=== PATIENT | male | born 1950 | race Caucasian/White ===

== ENCOUNTER 2018-01-09 16:01 | Inpatient (IN) | payer MEDICARE ==
[~2018-01-09] VITALS: Ht 182.9 cm; Wt 64.8 kg
[2018-01-09] MEDS ORDERED: SODIUM CHLORIDE FLUSH 10ML SYR IVF ONE (16:30)
[2018-01-09 16:46] LABS: BASOPHILS # (AUTO) 0.01 x10^3/uL (0-0.1); BASOPHILS % (AUTO) 0 % (0-1); EOSINOPHILS # (AUTO) 0.08 x10^3/uL (0-0.4); EOSINOPHILS % (AUTO) 2 % (1-7); LYMPHOCYTES # (AUTO) 1.15 x10^3/uL (1-3.4); LYMPHOCYTES % (AUTO) 25 % (22-44); MD NO; MEAN CORPUSCULAR HGB CONC 34.7 g/dL (33.2-36.2); MEAN CORPUSCULAR VOLUME 92.2 fL (81-97); MEAN PLATELET VOLUME 9.8 fL (7.4-10.4); MONOCYTES # (AUTO) 0.34 x10^3/uL (0.2-0.8); MONOCYTES % (AUTO) 7 % (2-9); NEUTROPHILS # (AUTO) 3.08 x10^3/uL (1.8-6.8); NEUTROPHILS % (AUTO) 66 % (42-75); PLATELET COUNT 159 x10^3/uL (130-400); RED BLOOD COUNT 4.62 x10^6/uL (4.38-5.82); RED CELL DISTRIBUTION WIDTH 12.8 % (9.4-14.8)
[2018-01-09 16:57] LABS: ALBUMIN 3.8 g/dL (3.4-5.0); ANION GAP 7 mmol/L (5-15); CALCIUM 8.7 mg/dL (8.5-10.1); CHLORIDE 102 mmol/L (98-107); CREATININE 0.84 mg/dL (0.7-1.3)
[2018-01-09] MEDS ORDERED: GADOBUTROL 7.5 MMOL/7.5 ML PFS ONE (17:46)
[2018-01-09] MEDS ORDERED: DEXAMETHASONE 4 MG/ML, 1ML ONE (18:52)
[2018-01-09] MEDS ORDERED: DEXAMETHASONE 4 MG/ML, 1ML IVPush ONE (19:00)
[2018-01-09] MEDS ORDERED: LEVETIRACETAM 500 MG in SODIUM CHLORIDE 0.9% 100 ML IV ONE (19:00)
[2018-01-09] MEDS ORDERED: ACETAMINOPHEN 325 MG TABLET PO PRN (19:30)
[2018-01-09] MEDS ORDERED: DEXAMETHASONE 4 MG/ML, 1ML IVPush SCH (19:30)
[2018-01-09] MEDS ORDERED: ONDANSETRON ODT 4 MG PO PRN (19:30)
[2018-01-09 21:36] VITALS: BP 118/82
[2018-01-09] MEDS: SODIUM CHLORIDE 0.9% 1,000 ML IV SCH (23:09)
[2018-01-10] MEDS: DEXAMETHASONE 4 MG/ML, 1ML IVPush SCH ×4 (01:50→20:13)
[2018-01-10 03:27] VITALS: BP 105/55
[2018-01-10 07:15] VITALS: BP 105/62
[2018-01-10] MEDS: LEVETIRACETAM 500 MG TABLET PO SCH ×3 (07:42→20:14)
[2018-01-10 12:26] VITALS: BP 102/62
[2018-01-10] MEDS: SODIUM CHLORIDE 0.9% 1,000 ML IV SCH (14:10)
[2018-01-10 20:20] VITALS: BP 104/61
[2018-01-11] MEDS: DEXAMETHASONE 4 MG/ML, 1ML IVPush SCH ×4 (01:37→19:40)
[2018-01-11 01:39] VITALS: BP 102/55
[2018-01-11] MEDS: SODIUM CHLORIDE 0.9% 1,000 ML IV SCH ×2 (06:30→19:40)
[2018-01-11] MEDS: LEVETIRACETAM 500 MG TABLET PO SCH ×2 (08:22→19:40)
[2018-01-11 08:25] VITALS: BP 111/65
[2018-01-11 13:30] VITALS: BP 110/62
[2018-01-11 20:29] VITALS: BP 100/58
[2018-01-12 01:59] VITALS: BP 102/64
[2018-01-12] MEDS: DEXAMETHASONE 4 MG/ML, 1ML IVPush SCH ×4 (02:01→19:54)
[2018-01-12] MEDS: LEVETIRACETAM 500 MG TABLET PO SCH ×2 (08:01→19:54)
[2018-01-12 08:15] VITALS: BP 108/63
[2018-01-12] MEDS: SODIUM CHLORIDE 0.9% 1,000 ML IV SCH ×2 (09:45→23:58)
[2018-01-12 09:53] LABS: INTERNATIONAL NORMALIZED RATIO 1.04 (0.93-1.1); PROTHROMBIN TIME 10.7 Seconds (9.6-11.5)
[2018-01-12 15:12] VITALS: BP 110/65
[2018-01-12 19:42] VITALS: BP 105/56
[2018-01-13 01:30] VITALS: BP 108/60
[2018-01-13] MEDS: DEXAMETHASONE 4 MG/ML, 1ML IVPush SCH ×4 (01:32→20:26)
[2018-01-13 07:58] VITALS: BP 111/67
[2018-01-13] MEDS: LEVETIRACETAM 500 MG TABLET PO SCH ×2 (08:48→20:30)
[2018-01-13] MEDS: FAMOTIDINE 20 MG TABLET PO PRN ×2 (08:48→18:46)
[2018-01-13] MEDS: SODIUM CHLORIDE 0.9% 1,000 ML IV SCH (13:38)
[2018-01-13 13:40] VITALS: BP 107/65
[2018-01-13 19:41] VITALS: BP 126/77
[2018-01-14 01:30] VITALS: BP 126/77
[2018-01-14] MEDS: DEXAMETHASONE 4 MG/ML, 1ML IVPush SCH ×4 (02:21→20:40)
[2018-01-14] MEDS: SODIUM CHLORIDE 0.9% 1,000 ML IV SCH ×2 (02:23→16:55)
[2018-01-14 07:21] VITALS: BP 101/60
[2018-01-14] MEDS: LEVETIRACETAM 500 MG TABLET PO SCH ×2 (08:21→20:40)
[2018-01-14] MEDS: FAMOTIDINE 20 MG TABLET PO PRN (12:56)
[2018-01-14] MEDS ORDERED: CALCIUM CARBONATE 500 MG TAB.CHEW PO SCH (13:00)
[2018-01-14 13:30] VITALS: BP 96/56
[2018-01-14] MEDS: CALCIUM CARBONATE 500 MG TAB.CHEW PO PRN (14:30)
[2018-01-14 20:06] VITALS: BP 139/72
[2018-01-15 01:40] VITALS: BP 109/54
[2018-01-15] MEDS: DEXAMETHASONE 4 MG/ML, 1ML IVPush SCH ×4 (02:23→21:02)
[2018-01-15] MEDS: CALCIUM CARBONATE 500 MG TAB.CHEW PO PRN ×2 (02:27→06:55)
[2018-01-15] MEDS: SODIUM CHLORIDE 0.9% 1,000 ML IV SCH ×2 (04:53→21:02)
[2018-01-15 06:49] VITALS: BP 109/66
[2018-01-15] MEDS: LEVETIRACETAM 500 MG TABLET PO SCH ×2 (08:54→20:08)
[2018-01-15 12:54] VITALS: BP 121/70
[2018-01-15 20:00] VITALS: BP 126/70
[2018-01-15] MEDS: TEMAZEPAM 15 MG CAPSULE PO PRN (20:08)
[2018-01-16 00:14] VITALS: BP 103/56
[2018-01-16] MEDS: DEXAMETHASONE 4 MG/ML, 1ML IVPush SCH ×4 (02:37→20:05)
[2018-01-16] MEDS ORDERED: GADOBUTROL 7.5 MMOL/7.5 ML PFS ONE (06:46)
[2018-01-16] MEDS ORDERED: BACITRACIN 50,000 UNIT ONE (06:47)
[2018-01-16] MEDS ORDERED: EPINEPHRINE 1 MG/ML, 1ML ONE (06:47)
[2018-01-16] MEDS ORDERED: BUPIVACAINE/PF 0.5% ONE (06:47)
[2018-01-16] MEDS ORDERED: MIDAZOLAM 1 MG/ML, 2ML ONE (07:48)
[2018-01-16] MEDS ORDERED: FENTANYL PF 250 MCG/5ML ONE (07:48)
[2018-01-16] MEDS ORDERED: EPHEDRINE 50 MG/ML, 1ML ONE (07:56)
[2018-01-16] MEDS ORDERED: ACETAMINOPHEN 500 MG TABLET PO ONE (08:00)
[2018-01-16] MEDS ORDERED: LEVETIRACETAM 1,000 MG in SODIUM CHLORIDE 0.9% 100 ML IV ONE (08:30)
[2018-01-16] MEDS ORDERED: HYDROmorphone 1 MG/ML, 1ML IV PRN (09:00)
[2018-01-16] MEDS ORDERED: OXYcodone 5 MG/5 ML ORAL.SOL UDC PO PRN (09:00)
[2018-01-16] MEDS ORDERED: PROMETHAZINE 25 MG SUPP PR PRN (09:00)
[2018-01-16] MEDS ORDERED: LABETALOL 5MG/ML, 20ML IV PRN (09:00)
[2018-01-16] MEDS ORDERED: ONDANSETRON ODT 8 MG PO PRN (09:00)
[2018-01-16] MEDS ORDERED: MEPERIDINE/PF 25MG/0.5ML IVPush PRN (09:00)
[2018-01-16] MEDS ORDERED: MIDAZOLAM 1 MG/ML, 2ML IV PRN (09:00)
[2018-01-16] MEDS ORDERED: hydrALAzine 20 MG/ML, 1ML IV PRN (09:00)
[2018-01-16] MEDS ORDERED: ALBUTEROL/IPRATROPIUM 2.5MG/0.5MG, 3 ML NPPB PRN (09:00)
[2018-01-16] MEDS ORDERED: LIDOCAINE-MPF 2% ,5ML ONE (09:18)
[2018-01-16] MEDS ORDERED: DEXAMETHASONE 4 MG/ML, 1ML ONE (09:41)
[2018-01-16] MEDS ORDERED: PROPOFOL 10 MG/ML, 20ML ONE (09:41)
[2018-01-16] MEDS ORDERED: GLYCOPYRROLATE 0.2MG/1ML, 5ML ONE (09:41)
[2018-01-16] MEDS ORDERED: NEOSTIGMINE 1 MG/ML, 10ML ONE (09:41)
[2018-01-16] MEDS ORDERED: ROCURONIUM 10MG/ML,5ML ONE (09:41)
[2018-01-16] MEDS ORDERED: ONDANSETRON 2MG/ML, 2ML ONE (09:41)
[2018-01-16] MEDS ORDERED: CEFAZOLIN 1,000 MG ONE (09:41)
[2018-01-16] MEDS ORDERED: FENTANYL PF 100 MCG/2ML ONE (10:14)
[2018-01-16] MEDS: FENTANYL PF 100 MCG/2ML IV PRN ×6 (10:15→17:55)
[2018-01-16] MEDS ORDERED: OXYcodone 5 MG/5 ML ORAL.SOL UDC ONE (10:47)
[2018-01-16] MEDS ORDERED: PHENOL THROAT SPRAY BOTTLE MM PRN (14:00)
[2018-01-16] MEDS: LEVETIRACETAM 500 MG TABLET PO SCH ×2 (14:36→20:17)
[2018-01-16] MEDS ORDERED: DIPHENHYDRAMINE 50 MG/ML, 1ML IM PRN (17:30)
[2018-01-16] MEDS ORDERED: LABETALOL 250 MG in DEXTROSE 5% 200 ML IV PRN (17:30)
[2018-01-16] MEDS ORDERED: DIPHENHYDRAMINE 50 MG/ML, 1ML IV PRN (17:30)
[2018-01-16] MEDS: CEFUROXIME 1.5 GM in SODIUM CHLORIDE 0.9% 50 ML IVPB SCH (17:55)
[2018-01-16] MEDS: SODIUM CHLORIDE 0.9% 1,000 ML IV SCH (20:16)
[2018-01-16] MEDS: HYDROcodone/APAP 5/325 TABLET PO PRN (20:17)
[2018-01-16] MEDS: ONDANSETRON 2MG/ML, 2ML IVPush PRN (22:17)
[2018-01-16] MEDS: OXYcodone/APAP 5/325MG TABLET PO PRN (23:46)
[2018-01-16] MEDS: TEMAZEPAM 15 MG CAPSULE PO PRN (23:46)
[2018-01-16] MEDS: FAMOTIDINE 20 MG TABLET PO PRN (23:46)
[2018-01-16] MEDS: CALCIUM CARBONATE 500 MG TAB.CHEW PO PRN (23:47)
[2018-01-17] MEDS: CEFUROXIME 1.5 GM in SODIUM CHLORIDE 0.9% 50 ML IVPB SCH (02:31)
[2018-01-17] MEDS: DEXAMETHASONE 4 MG/ML, 1ML IVPush SCH ×4 (02:32→20:35)
[2018-01-17] MEDS: OXYcodone/APAP 5/325MG TABLET PO PRN ×4 (04:08→20:36)
[2018-01-17] MEDS: ONDANSETRON 2MG/ML, 2ML IVPush PRN ×2 (04:31→20:35)
[2018-01-17] MEDS: SODIUM CHLORIDE 0.9% 1,000 ML IV SCH ×2 (05:59→18:20)
[2018-01-17] MEDS: LEVETIRACETAM 500 MG TABLET PO SCH ×2 (07:59→20:35)
[2018-01-17] MEDS: SENNA/DOCUSATE TABLET PO SCH (08:00)
[2018-01-17 09:53] LABS: ANION GAP 5 mmol/L (5-15); CALCIUM 7.6 mg/dL (8.5-10.1); CHLORIDE 103 mmol/L (98-107); CREATININE 0.79 mg/dL (0.7-1.3)
[2018-01-17 09:58] LABS: BASOPHILS % (AUTO) 0 % (0-1); EOSINOPHILS % (AUTO) 0 % (1-7); LYMPHOCYTES # (AUTO) 0.48 x10^3/uL (1-3.4); LYMPHOCYTES % (AUTO) 4 % (22-44); MD NO; MEAN CORPUSCULAR HEMOGLOBIN 32.4 pg (27.5-34.5); MEAN CORPUSCULAR VOLUME 92.7 fL (81-97); MEAN PLATELET VOLUME 9.7 fL (7.4-10.4); MONOCYTES # (AUTO) 0.81 x10^3/uL (0.2-0.8); MONOCYTES % (AUTO) 7 % (2-9); NEUTROPHILS # (AUTO) 10.86 x10^3/uL (1.8-6.8); NEUTROPHILS % (AUTO) 89 % (42-75); PLATELET COUNT 174 x10^3/uL (130-400); RED BLOOD COUNT 4.38 x10^6/uL (4.38-5.82); RED CELL DISTRIBUTION WIDTH 12.9 % (9.4-14.8)
[2018-01-17 13:55] VITALS: BP 123/74
[2018-01-17 14:29] VITALS: BP 125/70
[2018-01-17] MEDS: FAMOTIDINE 20 MG TABLET PO PRN ×2 (16:28→20:36)
[2018-01-17] MEDS: CALCIUM CARBONATE 500 MG TAB.CHEW PO PRN (16:29)
[2018-01-17 18:58] VITALS: BP 139/67
[2018-01-18] MEDS: OXYcodone/APAP 5/325MG TABLET PO PRN ×4 (01:02→13:39)
[2018-01-18] MEDS: DEXAMETHASONE 4 MG/ML, 1ML IVPush SCH ×4 (01:02→19:58)
[2018-01-18] MEDS: ONDANSETRON 2MG/ML, 2ML IVPush PRN (01:04)
[2018-01-18 01:09] VITALS: BP 104/66
[2018-01-18] MEDS: POLYETHYLENE GLYCOL 17 GM PACKET PO PRN ×2 (01:16→09:17)
[2018-01-18 04:52] LABS: BASOPHILS # (AUTO) 0.02 x10^3/uL (0-0.1); BASOPHILS % (AUTO) 0 % (0-1); EOSINOPHILS # (AUTO) 0.01 x10^3/uL (0-0.4); EOSINOPHILS % (AUTO) 0 % (1-7); LYMPHOCYTES # (AUTO) 0.47 x10^3/uL (1-3.4); LYMPHOCYTES % (AUTO) 4 % (22-44); MD NO; MEAN CORPUSCULAR HEMOGLOBIN 31.7 pg (27.5-34.5); MEAN CORPUSCULAR HGB CONC 34.5 g/dL (33.2-36.2); MEAN CORPUSCULAR VOLUME 91.9 fL (81-97); MEAN PLATELET VOLUME 9.9 fL (7.4-10.4); MONOCYTES # (AUTO) 0.27 x10^3/uL (0.2-0.8); MONOCYTES % (AUTO) 3 % (2-9); NEUTROPHILS # (AUTO) 9.92 x10^3/uL (1.8-6.8); NEUTROPHILS % (AUTO) 93 % (42-75); PLATELET COUNT 155 x10^3/uL (130-400); RED CELL DISTRIBUTION WIDTH 12.9 % (9.4-14.8)
[2018-01-18 05:01] LABS: ANION GAP 6 mmol/L (5-15); CALCIUM 7.4 mg/dL (8.5-10.1); CHLORIDE 105 mmol/L (98-107); CREATININE 0.55 mg/dL (0.7-1.3)
[2018-01-18] MEDS: SODIUM CHLORIDE 0.9% 1,000 ML IV SCH (05:41)
[2018-01-18] MEDS: FAMOTIDINE 20 MG TABLET PO PRN (05:41)
[2018-01-18 07:34] VITALS: BP 122/68
[2018-01-18] MEDS: SENNA/DOCUSATE TABLET PO SCH (09:11)
[2018-01-18] MEDS: LEVETIRACETAM 500 MG TABLET PO SCH ×2 (09:11→19:58)
[2018-01-18] MEDS ORDERED: BISACODYL 10 MG SUPP PR PRN (11:30)
[2018-01-18] MEDS ORDERED: POLYETHYLENE GLYCOL 17 GM PACKET PO PRN (11:30)
[2018-01-18] MEDS ORDERED: PINK LADY ENEMA 490 ML BOTTLE PR PRN (11:30)
[2018-01-18] MEDS ORDERED: GADOBUTROL 7.5 MMOL/7.5 ML PFS ONE (13:08)
[2018-01-18] MEDS: LACTULOSE 20 GM/30 ML UDC PO PRN (13:39)
[2018-01-18 17:02] VITALS: BP 108/60
[2018-01-18 19:31] VITALS: BP 114/66
[2018-01-18 23:34] VITALS: BP 116/64
[2018-01-19] MEDS: ONDANSETRON 2MG/ML, 2ML IVPush PRN (00:04)
[2018-01-19] MEDS: FAMOTIDINE 20 MG TABLET PO PRN (01:17)
[2018-01-19] MEDS: DEXAMETHASONE 4 MG/ML, 1ML IVPush SCH ×5 (03:29→23:29)
[2018-01-19 06:54] VITALS: BP 131/72
[2018-01-19] MEDS: LEVETIRACETAM 500 MG TABLET PO SCH ×2 (09:56→20:17)
[2018-01-19] MEDS: SENNA/DOCUSATE TABLET PO SCH (09:56)
[2018-01-19 12:48] VITALS: BP_SYST 11; BP_SYST 112; BP_DIAS 68
[2018-01-19] MEDS: LACTULOSE 20 GM/30 ML UDC PO PRN (16:41)
[2018-01-19] MEDS: OXYcodone/APAP 5/325MG TABLET PO PRN (18:25)
[2018-01-19 19:53] VITALS: BP 101/67
[2018-01-19] MEDS: HYDROcodone/APAP 5/325 TABLET PO PRN (23:38)
[2018-01-20 01:45] VITALS: BP 102/66
[2018-01-20] MEDS: OXYcodone/APAP 5/325MG TABLET PO PRN (02:38)
[2018-01-20] MEDS: DEXAMETHASONE 4 MG/ML, 1ML IVPush SCH ×2 (06:24→12:44)
[2018-01-20 07:01] VITALS: BP 97/62
[2018-01-20] MEDS: LEVETIRACETAM 500 MG TABLET PO SCH (10:20)
[2018-01-20] MEDS: SENNA/DOCUSATE TABLET PO SCH (10:25)
[2018-01-20] MEDS ORDERED: ACET325T14 PO (10:40)
[2018-01-20] MEDS ORDERED: LEVE500T53 PO (10:40)
[2018-01-20] MEDS ORDERED: DEXA4TAB66 PO (10:50)
[2018-01-20 12:44] VITALS: BP 125/73
== END 2018-01-20 16:15 | disposition home or self-care (01) | DRG 25 ==
LOC: ED 18:26 → SUATTDRO 19:10 → EDIP 19:12 → 3NW 21:14 → ICU 01-16 11:28 → 3NW 01-17 13:32 → DCLOUNGE 01-20 15:44
PROVIDERS: ADMIT Hospitalist; ATTEND Family Medicine
PROC: 00B70ZZ Excision of Cerebral Hemisphere, Open Approach (ICD-10-PCS; principal; 2018-01-16 08:00)
DX: C71.2 Malignant neoplasm of temporal lobe (principal); G93.6 Cerebral edema; E44.0 Moderate protein-calorie malnutrition; Z68.1 Body mass index [BMI] 19.9 or less, adult; G89.29 Other chronic pain; K21.9 Gastro-esophageal reflux disease without esophagitis; K59.00 Constipation, unspecified; M54.9 Dorsalgia, unspecified; F41.1 Generalized anxiety disorder; Z87.11 Personal history of peptic ulcer disease
CPT/HCPCS: 36415; 70450; 70552; 70553; 71045; 80048; 82040; 82962; 83735; 84100; 85025; 85610; 85730; 87081; 88305; 88331; 93005; 96374; 96375; A9585; C1713; G0378; J0171; J0690; J0697; J1100; J1953; J2250; J2405; J2704; J2710; J3010; J3490; Q0162; 92523-GN; A4648; C1781; G0515-GN; J7030

== ENCOUNTER → 2018-03-12 | Outpatient (CLI) | payer MEDICARE ==
[~2018-03-12] MED LIST: ACET325T14 PO; DEXA4TAB66 PO; LEVE500T53 PO
[2018-03-12 12:37] LABS: CHLORIDE 106 mmol/L (98-107)
[2018-03-12 12:44] LABS: ALANINE AMINOTRANSFERASE 26 U/L (12-78); ALBUMIN 3.8 g/dL (3.4-5.0); ALKALINE PHOSPHATASE 89 U/L (45-117); BILIRUBIN,TOTAL 1.1 mg/dL (0.2-1.0); CALCIUM 8.4 mg/dL (8.5-10.1); CREATININE 1.04 mg/dL (0.7-1.3); TOTAL PROTEIN 6.9 g/dL (6.4-8.2)
[2018-03-12 13:40] LABS: ANION GAP 5 mmol/L (5-15)
== END | disposition home or self-care (01) ==
LOC: LAB 12:02
PROVIDERS: ATTEND Specialist
DX: C71.2 Malignant neoplasm of temporal lobe (principal)
CPT/HCPCS: 36415; 80053

== ENCOUNTER 2018-04-15 08:30 | Outpatient (CLI) | payer MEDICARE | END 2018-04-15 23:59 | disposition home or self-care (01) | LOC: ROC 08:30 → EDSTATUS 05-14 14:41 | PROVIDERS: ATTEND Radiology Radiation Oncology | DX: Z08 Encounter for follow-up examination after completed treatment for malignant neoplasm (principal); C71.9 Malignant neoplasm of brain, unspecified | CPT/HCPCS: G0463 ==

== ENCOUNTER → 2018-05-13 | Outpatient (CLI) | payer MEDICARE | END | disposition home or self-care (01) | LOC: EDSTATUS 04-18 15:01 → ROC 09:56 | PROVIDERS: ATTEND Radiology Radiation Oncology | DX: Z08 Encounter for follow-up examination after completed treatment for malignant neoplasm (principal); Z85.841 Personal history of malignant neoplasm of brain | CPT/HCPCS: G0463 ==

== ENCOUNTER → 2018-05-13 | Outpatient (CLI) | payer MEDICARE ==
[~2018-05-13] MED LIST changes: +GADOBUTROL 7.5 MMOL/7.5 ML PFS ONE
== END | disposition home or self-care (01) ==
LOC: CFH 08:45
PROVIDERS: ATTEND Radiology Radiation Oncology
DX: C71.2 Malignant neoplasm of temporal lobe (principal)
CPT/HCPCS: 70553; 82565; A9585

== ENCOUNTER → 2018-05-27 | Outpatient (CLI) | payer MEDICARE ==
[~2018-05-27] MED LIST changes: -GADOBUTROL 7.5 MMOL/7.5 ML PFS ONE
[2018-05-27 13:31] LABS: BASOPHILS # (AUTO) 0.03 x10^3/uL (0-0.1); BASOPHILS % (AUTO) 1 % (0-1); EOSINOPHILS # (AUTO) 0.05 x10^3/uL (0-0.4); EOSINOPHILS % (AUTO) 1 % (1-7); LYMPHOCYTES # (AUTO) 1.07 x10^3/uL (1-3.4); LYMPHOCYTES % (AUTO) 23 % (22-44); MD NO; MEAN CORPUSCULAR HEMOGLOBIN 32.1 pg (27.5-34.5); MEAN CORPUSCULAR HGB CONC 34.6 g/dL (33.2-36.2); MEAN CORPUSCULAR VOLUME 92.8 fL (81-97); MEAN PLATELET VOLUME 9.2 fL (7.4-10.4); MONOCYTES # (AUTO) 0.48 x10^3/uL (0.2-0.8); MONOCYTES % (AUTO) 10 % (2-9); NEUTROPHILS # (AUTO) 2.95 x10^3/uL (1.8-6.8); NEUTROPHILS % (AUTO) 64 % (42-75); PLATELET COUNT 188 x10^3/uL (130-400); RED BLOOD COUNT 4.97 x10^6/uL (4.38-5.82); RED CELL DISTRIBUTION WIDTH 12.9 % (9.4-14.8)
[2018-05-27 13:37] LABS: ALANINE AMINOTRANSFERASE 20 U/L (12-78); ALBUMIN 4.4 g/dL (3.4-5.0); ANION GAP 4 mmol/L (5-15); CALCIUM 9.2 mg/dL (8.5-10.1); CHLORIDE 106 mmol/L (98-107)
[2018-05-27 13:39] LABS: ALKALINE PHOSPHATASE 92 U/L (45-117); BILIRUBIN,TOTAL 0.7 mg/dL (0.2-1.0); CREATININE 1.04 mg/dL (0.7-1.3); TOTAL PROTEIN 7.4 g/dL (6.4-8.2)
== END | disposition home or self-care (01) ==
LOC: LAB 13:13
PROVIDERS: ATTEND Specialist
DX: C71.2 Malignant neoplasm of temporal lobe (principal)
CPT/HCPCS: 36415; 80053; 85025

== ENCOUNTER → 2018-06-29 | Outpatient (CLI) | payer MEDICARE ==
[~2018-06-29] MED LIST changes: +GADOBUTROL 7.5 MMOL/7.5 ML PFS ONE
== END | disposition home or self-care (01) ==
LOC: CFH 10:09
PROVIDERS: ATTEND Radiology Radiation Oncology
DX: C71.2 Malignant neoplasm of temporal lobe (principal); G93.89 Other specified disorders of brain
CPT/HCPCS: 70553; 82565; A9585

== ENCOUNTER → 2018-07-06 | Outpatient (CLI) | payer MEDICARE ==
[~2018-07-06] MED LIST changes: -GADOBUTROL 7.5 MMOL/7.5 ML PFS ONE
== END | disposition home or self-care (01) ==
LOC: ROC 08:59
PROVIDERS: ATTEND Radiology Radiation Oncology
DX: C71.2 Malignant neoplasm of temporal lobe (principal); Z79.899 Other long term (current) drug therapy
CPT/HCPCS: G0463

== ENCOUNTER → 2018-08-24 | Outpatient (CLI) | payer MEDICARE ==
[~2018-08-24] MED LIST changes: +GADOBUTROL 7.5 MMOL/7.5 ML PFS ONE
== END | disposition home or self-care (01) ==
LOC: CFH 09:16
PROVIDERS: ATTEND Radiology Radiation Oncology
DX: C71.0 Malignant neoplasm of cerebrum, except lobes and ventricles (principal)
CPT/HCPCS: 70553; A9585

== ENCOUNTER → 2018-08-24 | Outpatient (CLI) | payer MEDICARE ==
[~2018-08-24] MED LIST changes: -GADOBUTROL 7.5 MMOL/7.5 ML PFS ONE
== END | disposition home or self-care (01) ==
LOC: ROC 10:00
PROVIDERS: ATTEND Radiology Radiation Oncology
DX: C71.2 Malignant neoplasm of temporal lobe (principal)
CPT/HCPCS: G0463

== ENCOUNTER 2018-09-23 07:58 | Outpatient (CLI) | payer MEDICARE | END 2018-09-23 23:59 | disposition home or self-care (01) | LOC: ROC 07:58 | PROVIDERS: ATTEND Radiology Radiation Oncology | DX: Z02.9 Encounter for administrative examinations, unspecified (principal) ==

== ENCOUNTER 2018-10-05 09:20 | Outpatient (CLI) | payer MEDICARE ==
[~2018-10-05 09:20] MED LIST changes: -GADOBUTROL 7.5 MMOL/7.5 ML VIAL ONE
== END 2018-10-05 23:59 | disposition home or self-care (01) ==
LOC: ROC 09:20
PROVIDERS: ATTEND Radiology Radiation Oncology
DX: C71.2 Malignant neoplasm of temporal lobe (principal)
CPT/HCPCS: G0463

== ENCOUNTER → 2018-10-05 | Outpatient (CLI) | payer MEDICARE ==
[~2018-10-05] MED LIST changes: +GADOBUTROL 7.5 MMOL/7.5 ML VIAL ONE
== END | disposition home or self-care (01) ==
LOC: CFH 09:22
PROVIDERS: ATTEND Radiology Radiation Oncology
DX: C71.2 Malignant neoplasm of temporal lobe (principal); G93.89 Other specified disorders of brain
CPT/HCPCS: 70553; A9585

== ENCOUNTER → 2019-01-19 | Outpatient (CLI) | payer MEDICARE ==
[~2019-01-19] MED LIST changes: +GADOTERATE 7.5 MMOL/15 ML SYR ONE
[2019-01-19 16:08] LABS: ALANINE AMINOTRANSFERASE 27 U/L (12-78); ALBUMIN 4.2 g/dL (3.4-5.0); ANION GAP 4 mmol/L (5-15); CALCIUM 8.4 mg/dL (8.5-10.1); CHLORIDE 102 mmol/L (98-107); CREATININE 0.89 mg/dL (0.7-1.3)
[2019-01-19 16:11] LABS: ALKALINE PHOSPHATASE 86 U/L (45-117); BILIRUBIN,TOTAL 0.7 mg/dL (0.2-1.0); TOTAL PROTEIN 7.4 g/dL (6.4-8.2)
== END | disposition home or self-care (01) ==
LOC: CFH 14:05
PROVIDERS: ATTEND Radiology Radiation Oncology
DX: H70.93 Unspecified mastoiditis, bilateral (principal); C71.2 Malignant neoplasm of temporal lobe; I67.82 Cerebral ischemia; Z80.42 Family history of malignant neoplasm of prostate
CPT/HCPCS: 36415; 70553; 80053; A9575

== ENCOUNTER 2019-01-22 16:24 | Emergency (ER) | payer MEDICARE ==
[~2019-01-22] VITALS: Ht 182.9 cm; Wt 63.9 kg
[~2019-01-22 16:24] MED LIST changes: -GADOTERATE 7.5 MMOL/15 ML SYR ONE
[2019-01-22 16:53] VITALS: BP 120/63
--- NOTE | 2019-01-22 17:58 | NUR ---
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
== END 2019-01-22 18:00 | disposition left against medical advice (07) ==
LOC: ED 17:54
DX: R51 Headache (principal); Z53.21 Procedure and treatment not carried out due to patient leaving prior to being seen by health care provider

== ENCOUNTER → 2019-03-22 | Outpatient (CLI) | payer MEDICARE ==
[~2019-03-22] MED LIST changes: +GADOTERATE 7.5 MMOL/15 ML SYR ONE
== END | disposition home or self-care (01) ==
LOC: CFH 13:23
PROVIDERS: ATTEND Radiology Radiation Oncology
DX: C71.2 Malignant neoplasm of temporal lobe (principal); I10 Essential (primary) hypertension
CPT/HCPCS: 70553; A9575

== ENCOUNTER 2019-03-31 09:39 | Outpatient (CLI) | payer MEDICARE ==
[~2019-03-31 09:39] MED LIST changes: -GADOTERATE 7.5 MMOL/15 ML SYR ONE
== END 2019-03-31 23:59 | disposition home or self-care (01) ==
LOC: ROC 09:39
PROVIDERS: ATTEND Radiology Radiation Oncology
DX: C71.2 Malignant neoplasm of temporal lobe (principal); G93.89 Other specified disorders of brain
CPT/HCPCS: G0463

== ENCOUNTER → 2019-05-28 | Outpatient (CLI) | payer MEDICARE ==
[~2019-05-28] MED LIST changes: +GADOTERATE 7.5 MMOL/15 ML SYR ONE
== END | disposition home or self-care (01) ==
LOC: CFH 11:45
PROVIDERS: ATTEND Radiology Radiation Oncology
DX: C71.2 Malignant neoplasm of temporal lobe (principal); R94.02 Abnormal brain scan
CPT/HCPCS: 70553; A9575

== ENCOUNTER 2019-06-02 08:50 | Outpatient (CLI) | payer MEDICARE ==
[~2019-06-02 08:50] MED LIST changes: -GADOTERATE 7.5 MMOL/15 ML SYR ONE
== END 2019-06-02 23:59 | disposition home or self-care (01) ==
LOC: ROC 08:50
PROVIDERS: ATTEND Radiology Radiation Oncology
DX: Z02.9 Encounter for administrative examinations, unspecified (principal)

== ENCOUNTER 2019-07-08 11:27 | Outpatient (CLI) | payer MEDICARE ==
[~2019-07-08 11:27] MED LIST changes: -GADOTERATE 7.5 MMOL/15 ML SYR ONE
== END 2019-07-08 23:59 | disposition home or self-care (01) ==
LOC: ROC 11:27
PROVIDERS: ATTEND Radiology Radiation Oncology
DX: Z02.9 Encounter for administrative examinations, unspecified (principal)

== ENCOUNTER → 2019-07-08 | Outpatient (CLI) | payer MEDICARE ==
[~2019-07-08] MED LIST changes: +GADOTERATE 7.5 MMOL/15 ML SYR ONE
== END | disposition home or self-care (01) ==
LOC: RAD 12:32 → EDSTATUS 12:45
PROVIDERS: ATTEND Radiology Radiation Oncology
DX: C71.2 Malignant neoplasm of temporal lobe (principal); G93.89 Other specified disorders of brain
CPT/HCPCS: 70553; A9575

== ENCOUNTER 2019-07-09 07:46 | Outpatient (CLI) | payer MEDICARE | END 2019-07-09 23:59 | disposition home or self-care (01) | LOC: ROC 07:46 | PROVIDERS: ATTEND Radiology Radiation Oncology | DX: C71.2 Malignant neoplasm of temporal lobe (principal) | CPT/HCPCS: G0463 ==

== ENCOUNTER → 2019-09-03 | Outpatient (CLI) | payer MEDICARE ==
[2019-09-03 12:10] LABS: MICROSCOPIC NOT IND
[2019-09-03 12:16] LABS: ALANINE AMINOTRANSFERASE 47 U/L (12-78); ALBUMIN 3.9 g/dL (3.4-5.0); ANION GAP 6 mmol/L (5-15); CALCIUM 8.8 mg/dL (8.5-10.1); CHLORIDE 105 mmol/L (98-107); CREATININE 0.74 mg/dL (0.7-1.3)
[2019-09-03 12:18] LABS: ALKALINE PHOSPHATASE 74 U/L (45-117); BILIRUBIN,TOTAL 0.6 mg/dL (0.2-1.0); TOTAL PROTEIN 7.5 g/dL (6.4-8.2)
== END | disposition home or self-care (01) ==
LOC: LAB 11:30
PROVIDERS: ATTEND Nurse Practitioner
DX: C71.2 Malignant neoplasm of temporal lobe (principal); D70.1 Agranulocytosis secondary to cancer chemotherapy; Z51.12 Encounter for antineoplastic immunotherapy; Z79.899 Other long term (current) drug therapy
CPT/HCPCS: 36415; 80053; 81003

== ENCOUNTER 2019-09-16 07:54 | Outpatient (CLI) | payer MEDICARE | END 2019-09-16 23:59 | disposition home or self-care (01) | LOC: ROC 07:54 | PROVIDERS: ATTEND Radiology Radiation Oncology | DX: C71.2 Malignant neoplasm of temporal lobe (principal) | CPT/HCPCS: G0463 ==

== ENCOUNTER 2019-10-10 16:45 | Inpatient (IN) | payer MEDICARE ==
[~2019-10-10] VITALS: Ht 180.3 cm; Wt 59.4 kg
--- NOTE | 2019-10-10 17:09 | NUR ---
1130 BROTHER NOTICED LEFTSIDE FACE NUMBNESS AND RIGHT ARE WEACHNESS AND EXPRESSIVE APHASIA THAT LASTED FOR 8 MIN. TRANSFERED FROM [facility]. PT IN BED IN GOWN WITH CONT AIRPLANE PILOT PHOTOGRAMMETRY, SPO2, BP Q 30 MIN, SIDE RAILS UP X2, CALL LIGHT IN REACH. BROTHER AT BEDSIDE.
[2019-10-10] MEDS ORDERED: SODIUM CHLORIDE FLUSH 10ML SYR IVF ONE (17:30)
[2019-10-10 17:52] LABS: ALBUMIN 3.1 g/dL (3.4-5.0); ANION GAP 8 mmol/L (5-15); BASOPHILS # (AUTO) 0.01 x10^3/uL (0-0.1); BASOPHILS % (AUTO) 0 % (0-1); CALCIUM 8.5 mg/dL (8.5-10.1); CHLORIDE 104 mmol/L (98-107); EOSINOPHILS # (AUTO) 0.08 x10^3/uL (0-0.4); EOSINOPHILS % (AUTO) 2 % (1-7); LYMPHOCYTES # (AUTO) 0.39 x10^3/uL (1-3.4); LYMPHOCYTES % (AUTO) 11 % (22-44); MD NO; MEAN CORPUSCULAR HEMOGLOBIN 34.3 pg (27.5-34.5); MEAN CORPUSCULAR HGB CONC 34.3 g/dL (33.2-36.2); MONOCYTES # (AUTO) 0.34 x10^3/uL (0.2-0.8); MONOCYTES % (AUTO) 10 % (2-9); NEUTROPHILS # (AUTO) 2.66 x10^3/uL (1.8-6.8); NEUTROPHILS % (AUTO) 76 % (42-75); PLATELET COUNT 195 x10^3/uL (130-400); RED BLOOD COUNT 3.85 x10^6/uL (4.38-5.82)
[2019-10-10 17:53] LABS: INTERNATIONAL NORMALIZED RATIO 0.99 (0.93-1.1); PROTHROMBIN TIME 10.5 Seconds (9.6-11.5)
[2019-10-10 17:57] LABS: ALANINE AMINOTRANSFERASE 26 U/L (12-78); ALKALINE PHOSPHATASE 66 U/L (45-117); BILIRUBIN,TOTAL 0.4 mg/dL (0.2-1.0); CREATININE 0.71 mg/dL (0.7-1.3); TOTAL PROTEIN 6.9 g/dL (6.4-8.2)
[2019-10-10] MEDS ORDERED: DEXAMETHASONE 4 MG/ML, 1ML ONE (18:51)
[2019-10-10] MEDS ORDERED: DEXAMETHASONE 4 MG/ML, 1ML IVPush ONE (19:00)
[2019-10-10] MEDS ORDERED: hydrALAzine 20 MG/ML, 1ML IVPush PRN (19:00)
[2019-10-10] MEDS ORDERED: ONDANSETRON 2MG/ML, 2ML IVPush PRN (19:00)
[2019-10-10] MEDS ORDERED: MORPHINE SULFATE 4 MG/ML, 1ML IVPush PRN (19:00)
[2019-10-10] MEDS ORDERED: POLYETHYLENE GLYCOL 17 GM PACKET PO PRN (19:00)
[2019-10-10] MEDS ORDERED: PROMETHAZINE 25 MG/ML, 1ML IM PRN (19:00)
[2019-10-10] MEDS ORDERED: ACETAMINOPHEN 325 MG TABLET PO PRN (19:00)
[2019-10-10] MEDS ORDERED: DOCUSATE 100 MG CAPSULE PO PRN (19:00)
[2019-10-10] MEDS ORDERED: BISACODYL 10 MG SUPP PR PRN (19:00)
[2019-10-10 20:04] VITALS: BP 144/85
[2019-10-10] MEDS: INSULIN LISPRO 100 UNITS/ML, PEN SQ-INSULIN SCH (21:00)
[2019-10-10] MEDS: FAMOTIDINE 20 MG TABLET PO SCH (21:28)
[2019-10-10] MEDS: DEXAMETHASONE 4 MG/ML, 1ML IVPush SCH (21:28)
[2019-10-10] MEDS: LEVETIRACETAM 500 MG TABLET PO SCH (21:29)
[2019-10-11 01:37] VITALS: BP 119/65
[2019-10-11] MEDS: DEXAMETHASONE 4 MG/ML, 1ML IVPush SCH ×4 (04:10→21:19)
[2019-10-11 04:27] LABS: MEAN CORPUSCULAR HEMOGLOBIN 33.7 pg (27.5-34.5); MEAN CORPUSCULAR HGB CONC 33.6 g/dL (33.2-36.2); MEAN PLATELET VOLUME 7.9 fL (7.4-10.4); PLATELET COUNT 209 x10^3/uL (130-400); RED BLOOD COUNT 4.02 x10^6/uL (4.38-5.82); RED CELL DISTRIBUTION WIDTH 13.3 % (9.4-14.8)
[2019-10-11 04:30] LABS: ANION GAP 7 mmol/L (5-15); CALCIUM 8.7 mg/dL (8.5-10.1); CHLORIDE 107 mmol/L (98-107)
[2019-10-11 04:32] LABS: CREATININE 0.54 mg/dL (0.7-1.3)
[2019-10-11 04:34] VITALS: BP 101/62
[2019-10-11 05:44] LABS: BASOPHILS % (AUTO) 0 % (0-1); EOSINOPHILS % (AUTO) 0 % (1-7); LYMPHOCYTES # (AUTO) 0.23 x10^3/uL (1-3.4); LYMPHOCYTES % (AUTO) 9 % (22-44); MD SCAN; MONOCYTES # (AUTO) 0.05 x10^3/uL (0.2-0.8); MONOCYTES % (AUTO) 2 % (2-9); NEUTROPHILS # (AUTO) 2.38 x10^3/uL (1.8-6.8); NEUTROPHILS % (AUTO) 89 % (42-75)
[2019-10-11 06:00] LABS: FREE T4 (FREE THYROXINE) 1.09 ng/dL (0.76-1.46)
[2019-10-11] MEDS: INSULIN LISPRO 100 UNITS/ML, PEN SQ-INSULIN SCH ×4 (07:00→21:00)
[2019-10-11 09:11] VITALS: BP 123/75
[2019-10-11] MEDS: LEVETIRACETAM 500 MG TABLET PO SCH ×2 (09:25→21:19)
[2019-10-11] MEDS: FAMOTIDINE 20 MG TABLET PO SCH ×2 (09:25→21:19)
[2019-10-11 12:57] VITALS: BP 118/71
[2019-10-11] MEDS ORDERED: GADOTERATE 7.5 MMOL/15 ML SYR ONE (14:02)
[2019-10-11 15:55] VITALS: BP 120/76
[2019-10-11 18:44] VITALS: BP 124/76
[2019-10-12 01:54] VITALS: BP 118/72
[2019-10-12] MEDS: DEXAMETHASONE 4 MG/ML, 1ML IVPush SCH ×4 (03:34→21:41)
[2019-10-12 04:18] LABS: MEAN CORPUSCULAR HEMOGLOBIN 33.8 pg (27.5-34.5); MEAN CORPUSCULAR HGB CONC 33.4 g/dL (33.2-36.2); PLATELET COUNT 223 x10^3/uL (130-400); RED BLOOD COUNT 3.93 x10^6/uL (4.38-5.82); RED CELL DISTRIBUTION WIDTH 13.3 % (9.4-14.8)
[2019-10-12 04:21] LABS: ANION GAP 7 mmol/L (5-15); CHLORIDE 107 mmol/L (98-107); CREATININE 0.69 mg/dL (0.7-1.3)
[2019-10-12 04:48] LABS: BASOPHILS % (AUTO) 0 % (0-1); EOSINOPHILS % (AUTO) 0 % (1-7); LYMPHOCYTES # (AUTO) 0.38 x10^3/uL (1-3.4); LYMPHOCYTES % (AUTO) 4 % (22-44); MD SCAN; MONOCYTES # (AUTO) 0.23 x10^3/uL (0.2-0.8); MONOCYTES % (AUTO) 3 % (2-9); NEUTROPHILS # (AUTO) 8.35 x10^3/uL (1.8-6.8); NEUTROPHILS % (AUTO) 93 % (42-75)
[2019-10-12 07:19] VITALS: BP 112/67
[2019-10-12] MEDS: INSULIN LISPRO 100 UNITS/ML, PEN SQ-INSULIN SCH ×4 (08:04→20:11)
[2019-10-12] MEDS: LEVETIRACETAM 500 MG TABLET PO SCH ×2 (08:43→20:12)
[2019-10-12] MEDS: FAMOTIDINE 20 MG TABLET PO SCH ×2 (08:43→20:12)
[2019-10-12 13:30] VITALS: BP 116/70
[2019-10-12] MEDS ORDERED: ATORVASTATIN 80 MG TABLET PO SCH (21:00)
[2019-10-12 22:05] VITALS: BP 115/71
[2019-10-13 01:32] VITALS: BP 109/64
[2019-10-13] MEDS: DEXAMETHASONE 4 MG/ML, 1ML IVPush SCH ×2 (05:04→09:30)
[2019-10-13 05:09] LABS: MEAN CORPUSCULAR HEMOGLOBIN 34.3 pg (27.5-34.5); MEAN CORPUSCULAR HGB CONC 33.8 g/dL (33.2-36.2); PLATELET COUNT 218 x10^3/uL (130-400); RED BLOOD COUNT 3.89 x10^6/uL (4.38-5.82); RED CELL DISTRIBUTION WIDTH 13.2 % (9.4-14.8)
[2019-10-13 05:22] LABS: ANION GAP 7 mmol/L (5-15); CALCIUM 8.5 mg/dL (8.5-10.1); CHLORIDE 106 mmol/L (98-107)
[2019-10-13 05:23] LABS: CREATININE 0.76 mg/dL (0.7-1.3)
[2019-10-13 05:57] LABS: BASOPHILS % (AUTO) 0 % (0-1); EOSINOPHILS % (AUTO) 0 % (1-7); LYMPHOCYTES # (AUTO) 0.22 x10^3/uL (1-3.4); LYMPHOCYTES % (AUTO) 2 % (22-44); MD SCAN; MONOCYTES # (AUTO) 0.22 x10^3/uL (0.2-0.8); MONOCYTES % (AUTO) 2 % (2-9); NEUTROPHILS # (AUTO) 8.85 x10^3/uL (1.8-6.8); NEUTROPHILS % (AUTO) 95 % (42-75)
[2019-10-13] MEDS: INSULIN LISPRO 100 UNITS/ML, PEN SQ-INSULIN SCH ×2 (07:00→11:00)
[2019-10-13 08:04] VITALS: BP 115/70
[2019-10-13] MEDS: FAMOTIDINE 20 MG TABLET PO SCH (09:00)
[2019-10-13] MEDS: LEVETIRACETAM 500 MG TABLET PO SCH (09:00)
[2019-10-13] MEDS ORDERED: ATOR-2 PO (09:28)
[2019-10-13] MEDS ORDERED: LEVE500T53 PO (09:28)
[2019-10-13] MEDS ORDERED: DEXA4TAB66 PO (09:28)
[2019-10-13] MEDS ORDERED: FAMO20TA7 PO (11:30)
[2019-11-17] MEDS ORDERED: RIVA15TA PO (09:17)
== END 2019-10-13 14:45 | disposition home or self-care (01) | DRG 64 ==
LOC: ED 18:34 → 4WST 20:12 → DCLOUNGE 10-13 14:11
PROVIDERS: ADMIT Internal Medicine; ATTEND Internal Medicine
DX: I63.9 Cerebral infarction, unspecified (principal); G93.6 Cerebral edema; C71.2 Malignant neoplasm of temporal lobe; R47.01 Aphasia; K21.9 Gastro-esophageal reflux disease without esophagitis; T45.1X5A Adverse effect of antineoplastic and immunosuppressive drugs, initial encounter; R29.810 Facial weakness; Z85.841 Personal history of malignant neoplasm of brain; Z92.21 Personal history of antineoplastic chemotherapy; Z92.3 Personal history of irradiation; Y92.89 Other specified places as the place of occurrence of the external cause
CPT/HCPCS: 36415; 70553; 80048; 80053; 82962; 83735; 84100; 84439; 84443; 85025; 85610; 86850; 86900; 93005; 93306; 93356; 93880; 96374; G0378; J1100; 92523-GN; A9575

== ENCOUNTER 2019-11-26 07:30 | Outpatient (CLI) | payer MEDICARE ==
[~2019-11-26 07:30] MED LIST changes: +ATOR-2 PO; +FAMO20TA7 PO; +RIVA15TA PO
== END 2019-11-26 23:59 | disposition home or self-care (01) ==
LOC: ROC 07:30
PROVIDERS: ATTEND Radiology Radiation Oncology
DX: C71.2 Malignant neoplasm of temporal lobe (principal); C71.6 Malignant neoplasm of cerebellum; K21.9 Gastro-esophageal reflux disease without esophagitis; E78.5 Hyperlipidemia, unspecified; Z87.891 Personal history of nicotine dependence; Z79.01 Long term (current) use of anticoagulants; Z79.899 Other long term (current) drug therapy
CPT/HCPCS: G0463

== ENCOUNTER → 2019-12-01 | Outpatient (CLI) | payer MEDICARE ==
[~2019-12-01] MED LIST changes: +GADOTERATE 7.5 MMOL/15 ML SYR ONE
== END | disposition home or self-care (01) ==
LOC: CFH 12:17
PROVIDERS: ATTEND Radiology Radiation Oncology
DX: C71.9 Malignant neoplasm of brain, unspecified (principal); G93.89 Other specified disorders of brain
CPT/HCPCS: 70553; A9575

== ENCOUNTER → 2020-02-09 | Outpatient (CLI) | payer MEDICARE | END | disposition home or self-care (01) | LOC: CFH 12:08 | PROVIDERS: ATTEND Radiology Radiation Oncology | DX: C71.6 Malignant neoplasm of cerebellum (principal); R22.0 Localized swelling, mass and lump, head | CPT/HCPCS: 70553; A9575 ==

== ENCOUNTER 2020-02-14 08:04 | Outpatient (CLI) | payer MEDICARE ==
[~2020-02-14 08:04] MED LIST changes: -GADOTERATE 7.5 MMOL/15 ML SYR ONE
== END 2020-02-14 23:59 | disposition home or self-care (01) ==
LOC: ROC 08:04
PROVIDERS: ATTEND Radiology Radiation Oncology
DX: C71.6 Malignant neoplasm of cerebellum (principal); C71.2 Malignant neoplasm of temporal lobe; R22.0 Localized swelling, mass and lump, head; K21.9 Gastro-esophageal reflux disease without esophagitis; E78.5 Hyperlipidemia, unspecified; Z79.899 Other long term (current) drug therapy; Z79.01 Long term (current) use of anticoagulants; Z87.891 Personal history of nicotine dependence
CPT/HCPCS: G0463

== ENCOUNTER → 2020-05-01 | Outpatient (CLI) | payer MEDICARE ==
[~2020-05-01] MED LIST changes: +GADOTERATE 7.5 MMOL/15 ML SYR ONE
== END | disposition home or self-care (01) ==
LOC: RAD 13:29
PROVIDERS: ATTEND Radiology Radiation Oncology
DX: C71.6 Malignant neoplasm of cerebellum (principal); S06.5X9A Traumatic subdural hemorrhage with loss of consciousness of unspecified duration, initial encounter; X58.XXXA Exposure to other specified factors, initial encounter; Y93.89 Activity, other specified; Y92.89 Other specified places as the place of occurrence of the external cause; Y99.8 Other external cause status
CPT/HCPCS: 70553; A9575

== ENCOUNTER → 2020-05-01 | Outpatient (CLI) | payer MEDICARE ==
[~2020-05-01] MED LIST changes: -GADOTERATE 7.5 MMOL/15 ML SYR ONE
== END | disposition home or self-care (01) ==
LOC: ROC 08:59
PROVIDERS: ATTEND Radiology Radiation Oncology
DX: Z08 Encounter for follow-up examination after completed treatment for malignant neoplasm (principal); C71.6 Malignant neoplasm of cerebellum
CPT/HCPCS: G0463

== ENCOUNTER 2020-05-12 09:25 | Outpatient (CLI) | payer MEDICARE | END 2020-05-12 23:59 | disposition home or self-care (01) | LOC: ROC 09:25 | PROVIDERS: ATTEND Radiology Radiation Oncology | DX: Z08 Encounter for follow-up examination after completed treatment for malignant neoplasm (principal); Z85.841 Personal history of malignant neoplasm of brain | CPT/HCPCS: G0463 ==